=== PATIENT | male | born 1945 | race Caucasian/White ===

== ENCOUNTER → 2018-03-19 | Outpatient (REF) | payer MEDICARE ==
[~2018-03-19] MED LIST: ALL DAY10 MG PO; ALLOPURINOL300 MG PO; AMOXICILLIN500 MG OR; ASPIRIN325 MG PO
== END | disposition home or self-care (01) ==
LOC: DI 15:24
PROVIDERS: ATTEND Family Medicine
DX: M25.511 Pain in right shoulder (principal); M25.561 Pain in right knee; M19.011 Primary osteoarthritis, right shoulder; M17.11 Unilateral primary osteoarthritis, right knee

== ENCOUNTER → 2018-09-03 | Outpatient (REF) | payer MEDICARE ==
[2018-09-03 10:55] LABS: HEMOGLOBIN 15.6 g/dl (14.0-18.0); IMMATURE GRANULOCYTES 0.3 % (0.0-5.0); MEAN CELL VOLUME 92.1 fL CALC (80.0-100.0); MEAN CORPUSCULAR HGB 29.9 pG CALC (26.0-32.0); MEAN CORPUSCULAR HGB CONC 32.5 g/L CALC (32.0-36.0); NEUT# 3.85 thou/uL (1.82-7.42); RED BLOOD COUNT 5.21 mill/uL (4.70-6.10); RED CELL DISTRI WIDTH 13.6 % (11.5-15.5)
[2018-09-03 11:01] LABS: URINE BILIRUBIN - DIPSTICK NEGATIVE (NEGATIVE); URINE BLOOD DIPSTICK NEGATIVE (NEGATIVE); URINE COLOR YELLOW; URINE GLUCOSE - DIPSTICK NEGATIVE (NEGATIVE); URINE KETONE NEGATIVE (NEGATIVE); URINE LEUK ESTERASE NEGATIVE (NEGATIVE); URINE NITRITE - DIPSTICK NEGATIVE (Negative); URINE PH 5.5 (4.5-8.0); URINE PROTEIN - DIPSTICK NEGATIVE (NEG-TRACE); URINE SPECIFIC GRAVITY <=1.005; URINE UROBILINOGEN - DIPSTICK 0.2 E.U./dL (0.2)
[2018-09-03 11:36] LABS: ACT PARTIAL THROMBO TIME 28.9 SECONDS (20.0-32.5); PROTHROMBIN TIME 10.3 SECONDS (9.0-12.5)
[2018-09-03 11:40] LABS: ALBUMIN 4.2 g/dL (3.2-5.0); ALKALINE PHOSPHATASE 94 u/l (38-126); ANION GAP 16 (6-22 (CALC)); BILIRUBIN, TOTAL 0.4 mg/dL (0.0-1.4); BUN 22 mg/dL (8-23); BUN/CREATININE RATIO 19 (12-20 (CALC)); CARBON DIOXIDE 24 mmol/l (22-30); CHLORIDE 103 mmol/l (95-108); CREATININE 1.2 mg/dL (0.7-1.3); GFR 59 ML/MIN (>=60 (CALC)); GFR FOR AFR.AMER. > 60 ML/MIN (>=60 (CALC)); POTASSIUM 4.5 mmol/l (3.5-5.1); SGOT/AST 17 u/l (19-48); SODIUM 139 mmol/l (137-146); TOTAL PROTEIN 7.2 g/dL (6.3-8.2)
== END | disposition home or self-care (01) ==
LOC: LAB 10:27
PROVIDERS: ATTEND Family Medicine
DX: Z01.818 Encounter for other preprocedural examination (principal); Z13.89 Encounter for screening for other disorder; Z51.81 Encounter for therapeutic drug level monitoring; Z01.811 Encounter for preprocedural respiratory examination

== ENCOUNTER 2022-02-18 19:00 | Emergency (ER) | payer MEDICARE ==
[~2022-02-18] VITALS: Ht 177.8 cm; Wt 111.6 kg
[2022-02-18 19:45] LABS: HEMATOCRIT 44.5 % (39.0-50.0); IMMATURE GRANULOCYTES 0.3 % (0.0-5.0); MEAN CELL VOLUME 90.4 fL CALC (80.0-100.0); MEAN CORPUSCULAR HGB 30.5 pG CALC (26.0-32.0); MEAN CORPUSCULAR HGB CONC 33.7 g/dL CAL (32.0-36.0); NEUT# 4.07 thou/uL (1.82-7.42); RED BLOOD COUNT 4.92 mill/uL (4.70-6.10); RED CELL DISTRI WIDTH 13.9 % (11.5-15.5)
[2022-02-18 19:57] LABS: BILIRUBIN, TOTAL 0.4 mg/dL (0.0-1.4); CREATININE 1.5 mg/dL (0.7-1.3); TOTAL PROTEIN 7.5 g/dL (6.3-8.2)
[2022-02-18 23:05] VITALS: BP 135/87
== END 2022-02-18 23:05 | disposition home or self-care (01) ==
LOC: ED 19:00
PROVIDERS: Family Medicine
DX: K56.609 Unspecified intestinal obstruction, unspecified as to partial versus complete obstruction (principal)
CPT/HCPCS: Q9967

== ENCOUNTER 2024-06-08 12:04 | Inpatient (IN) | payer MEDICARE ==
[~2024-06-08] VITALS: Ht 177.8 cm; Wt 111.0 kg
[2024-06-08] VITALS (20 sets, daily range): BP systolic 100–147; BP diastolic 40–84
[~2024-06-08 12:04] MED LIST changes: +ACETAMINOPHEN 1,000 MG/100 ML VIAL IV ONE; +LACTATED RINGER'S 1,000 ML BAG IV ONE; +LIDOCAINE HCL 2% 2ML SDV IV ONE; +PLAVIX75 MG PO; +PROPOFOL 200 MG/20 ML VIAL IV ONE; +ROCURONIUM BROMIDE 10 MG/ML 5ML VIAL IV ONE; +SUCCINYLCHOLINE CHLORIDE 20 MG/ML 10ML VIAL IV ONE; +SUGAMMADEX SODIUM 200 MG/2 ML SDV IV ONE
--- NOTE | 2024-06-08 12:20 | NUR ---
PT WALKED BACK TO ER ROOM 2
[2024-06-08] MEDS ORDERED: MORPHINE SULFATE 4 MG/ML VIAL IV ONE (12:40)
[2024-06-08] MEDS ORDERED: SODIUM CHLORIDE 0.9% 1,000 ML IV ONE ×2 (12:40→13:50)
[2024-06-08] MEDS ORDERED: Pantoprazole Sodium 40 MG VIAL (Protonix) IV ONE (12:40)
[2024-06-08] MEDS ORDERED: ONDANSETRON HCl 4 MG/2 ML SDV IV ONE (12:40)
[2024-06-08 12:54] LABS: HEMATOCRIT 46.8 % (39.0-50.0); HEMOGLOBIN 15.1 g/dl (14.0-18.0); IMMATURE GRANULOCYTES 0.3 % (0.0-5.0); MEAN CELL VOLUME 95.1 fL CALC (80.0-100.0); MEAN CORPUSCULAR HGB 30.7 pG CALC (26.0-32.0); MEAN CORPUSCULAR HGB CONC 32.3 g/dL CAL (32.0-36.0); PLATELET COUNT 183 thou/uL (130-400); RED BLOOD COUNT 4.92 mill/uL (4.70-6.10); RED CELL DISTRI WIDTH 13.8 % (11.5-15.5)
--- NOTE | 2024-06-08 13:02 | NUR ---
PT MEDICATED PER EMAR, PT DENIES ANY NEEDS AT THIS TIME, CALL LIGHT WITHIN REACH
[2024-06-08 13:08] LABS: ALBUMIN 4.1 g/dL (3.2-5.0); BILIRUBIN, TOTAL 0.7 mg/dL (0.2-1.3); CREATININE 2.1 mg/dL (0.7-1.3); TOTAL PROTEIN 7.2 g/dL (6.3-8.2)
[2024-06-08 13:23] LABS: BAND 3 % (0-8); MANUAL DIFFERENTIAL YES
--- NOTE | 2024-06-08 15:00 | NUR ---
Reassessment of patient completed. No distress noted. PER PT HIS PAIN IS 2/10
[2024-06-08] MEDS ORDERED: HYDROmorphone HCL 2 MG/AMP IV PRN ×2 (15:25→18:30)
[2024-06-08] MEDS ORDERED: SODIUM CHLORIDE 0.9% 1,000 ML IV PRN (15:25)
[2024-06-08] MEDS ORDERED: MIDAZOLAM HCL 2 MG/2 ML VIAL IV ONE (15:30)
[2024-06-08] MEDS ORDERED: ATORVASTATIN CA20 MG PO (15:59)
[2024-06-08] MEDS ORDERED: LOPRESSOR25 M1 PO (15:59)
[2024-06-08] MEDS ORDERED: CORDARONE/200 MG/TAB PO (16:01)
--- NOTE | 2024-06-08 16:15 | NUR ---
ATTEMPTED AN NG TUBE PLACEMENT TWICE, NOT ABLE TO OBTAIN ACCESS, PT DECLINED A THIRD ATTEMPT, PT STATED "I WANT TO WAIT UNTIL THE OR TEAM CAN SEDATE ME AND PLACE IT, PROVIDER NOTED"
[2024-06-08] MEDS ORDERED: LIDOCAINE VISCOUS 2% 15 ML UDC PO PRN (16:25)
--- NOTE | 2024-06-08 16:39 | NUR ---
OR TEAM HERE TO TRANSPORT THE PT, TRANSFER OF CARE GIVEN, PT TO GO TO [facility] BED 277 AFTER THE PROCEDURE
[2024-06-08] MEDS ORDERED: LACTATED RINGER'S 1,000 ML IV ONE (16:58)
[2024-06-08] MEDS ORDERED: FAMOTIDINE 10MG/ML 2ML SDV IV ONE (17:16)
[2024-06-08] MEDS ORDERED: STERILE WATER FOR IRRIGATION 1,000 ML BTL IR ONE (18:08)
[2024-06-08] MEDS ORDERED: LIDOcaine HCl 1% (Local Anesth.) 20 ML VIAL ONE (18:08)
[2024-06-08] MEDS ORDERED: BENZOCAINE-MENTHOL (MOUTH-THRO 1 LOZ LOZ MT PRN (18:30)
[2024-06-08] MEDS ORDERED: PROMETHAZINE HCL 25 MG/ML AMP IV PRN (18:35)
[2024-06-08] MEDS ORDERED: Pantoprazole Sodium 40 MG VIAL (Protonix) IV SCH (18:40)
--- NOTE | 2024-06-08 20:00 | NUR ---
PATEINT ARRIVED FROM PACU VIA STRETCHER WITH PACU STAFF IN ATTENDANCE. PATIENT WAS ABLE TO TRANSFER OVER TO THE BED. PATIENT IS AWAKE AND ALERT WITH NO COMPLAINTS OF PAIN AT THIS TIME. NPO AT THIS TIME NG TUBE TO LEFT NARE AND HOOKED UP TO LIWS DRAINING SMALL AMT OF BROWN FLUID. IVF PATENT AND INFUSING VIA LEFT HAND. VS TAKEN AND RECORDED. CALL LIGHT IN REACH. WILL CONT TO MONITOR.
[2024-06-08] MEDS ORDERED: METOPROLOL TARTRATE 25 MG/TAB PO SCH (21:00)
[2024-06-08] MEDS ORDERED: SODIUM CHLORIDE 0.9% 1,000 ML IV SCH (23:25)
--- NOTE | 2024-06-08 23:48 | NUR ---
PATIENT ADMITTED FROM PACU VIA STRETCHER WITH PACU STAFF IN ATTENDANCE. PATIENT ABLE TO MOVE FROM STRETCHER TO BED. AWAKE ALERT AND ORIENTEDX3. PATIENT IS POST OP LAP WITH LYSIS OF ADHESIONS. ABD IS SOFTLY DISTENDED WITH LAP SITES INTACT WITH DERMADBOND. HYPOACTIVE BS AT THIS TIME. PATIENT WITH NG TUBE TO LEFT NARE AND DRAINING BROWNISH COLORED FLUID. IVF PATENT AND INFUSING VIA LEFT HAND SITE. SCD'S APPLIED ORDERED. IS AT BEDSIDE AND PATIENT INSTRUCTED ON USE Q1H WHILE AWAKE. PATIENT STATES MINIMAL PAIN AT THIS TIME. ORIENTED TO ROOM AND SURROUNDINGS. INSTRUCTED ON USE OF CALL LIGHT AND TV REMOTE. SAFETY PRECAUTIONS REINFORCED. REMAINS NPO AT TH IS TIME. CALL LIGHT IN REACH. WILL CONT TO MONITOR.
[2024-06-09 00:22] VITALS: BP 111/45
--- NOTE | 2024-06-09 00:40 | NUR ---
PATIENT SITTING UP IN BED AT THIS TIME WITH NG TUBE IN PLACE AND CONT TO DRAIN BROWN FLUID. PATIENT MEDICATED FOR POST-OP ABD PAIN AND THROAT PAIN WITH DILAUDID 1MGIVP VIA LEFT HAND SITE. NS PATENT AND INFUSING VIA LEFT HAND AT 125CC/HR. REMAINS NPO ORDERED. CALL LIGHT IN REACH. WILL CONT TO MONITOR.
--- NOTE | 2024-06-09 02:54 | NUR ---
PATIENT RESTING IN BED WITH HOB ELEVATED. NG TUBE CONT TO DRAIN BROWN FLUID AT THIS TIME. PATIENT WITH IVF NS PATENT AND INFUSING VIA LEFT HAND SITE AT 125CC/HR. MEDICATED FOR PAIN WITH DILAUDID 1MG IVP ORDERED FOR 610 POST-OP AND THROAT PAIN. SCD'S IN PLACE. CALL LIGHT IN REACH. WILL CONT TO MONITOR.
--- NOTE | 2024-06-09 03:16 | NUR ---
PATIENT ASSISTED OOB TO BEDSIDE TO VOID-50CC ONLY AT THIS TIME. ASSISTED BACK TO BED. WILL CONT TO MONITOR.
[2024-06-09 04:41] VITALS: BP 104/54
[2024-06-09 05:22] LABS: BASO% 0.2 % (0-3); EOS% 2.2 % (0-8); HEMATOCRIT 41.3 % (39.0-50.0); HEMOGLOBIN 13.2 g/dl (14.0-18.0); IMMATURE GRANULOCYTES 0.6 % (0.0-5.0); LYMPH% 19.4 % (15-41); MEAN CELL VOLUME 97.4 fL CALC (80.0-100.0); MEAN CORPUSCULAR HGB 31.1 pG CALC (26.0-32.0); MONO% 18.8 % (2-13); NEUT# 2.92 thou/uL (1.82-7.42); NEUT% 58.8 % (42-76); RED BLOOD COUNT 4.24 mill/uL (4.70-6.10); RED CELL DISTRI WIDTH 13.9 % (11.5-15.5)
[2024-06-09 05:32] LABS: BILIRUBIN, TOTAL 0.5 mg/dL (0.2-1.3); CREATININE 1.6 mg/dL (0.7-1.3); POTASSIUM 3.9 mmol/l (3.5-5.1)
[2024-06-09 05:36] LABS: TOTAL PROTEIN 5.7 g/dL (6.3-8.2)
--- NOTE | 2024-06-09 05:53 | NUR ---
PATIENT VOIDED 200CC OF NICK URINE AT THIS TIME. CONT TO BE NPO. NGTUBE TO LOW INT SUCTION. IVF NS PATENT AND INFUSING VIA LEFT HAND SITE AT 125CC/HR. CALL LIGHT IN REACH. WILL CONT TO MONITOR.
[2024-06-09 06:58] VITALS: BP 123/61
--- NOTE | 2024-06-09 08:00 | NUR ---
SHIFT CHANGE REPORT, PT AWAKE ALERT AND ORIENTED RESTING IN BED, NG TUBE IN PLACE TO L. NARE AT LIS WITH GREEN DRAINAGE, IVF INFUSING, ABD DISTENDED WITH SURGIAL PUNCTURES X 3 WELL APPROXIMATED WITH DERMABOND, CALL FERREIRA IN REACH AND BED LOCKED IN LOWEST POSITION.
[2024-06-09] MEDS ORDERED: AMIODARONE 200 MG/TAB PO SCH (09:00)
--- NOTE | 2024-06-09 09:15 | NUR ---
DR SADLER GAVE PHONE ORDERS TO REMOVE NG TUBE AND START PT ON CLEAR LIQUIDS
[2024-06-09 10:37] VITALS: BP 117/61
--- NOTE | 2024-06-09 12:30 | NUR ---
DR SADLER ROUNDED, DISCUSSED PLAN OF CARE, PT STATED UNDERSTANDING.
[2024-06-09 14:49] VITALS: BP 129/41
--- NOTE | 2024-06-09 17:00 | NUR ---
TOLERATED LIQUIDS WELL, THEN REGULAR MEAL WELL ALSO.
[2024-06-09 19:01] VITALS: BP 124/58
--- NOTE | 2024-06-09 20:00 | NUR ---
PATIENT IS SITTING UP IN BED WATCHING TV AT THIS TIME-AWAKE ALERT AND ORIENTEDX3. PATIENT WITH NO COMPLAINTS AT THIS TIME. PATIENT STATES NO NAUSEA AFTER HAVING REGULAR DIET FOR DINNER. ABD IS DISTENDED WITH HYPOACTIVE BS. STATES THAT HE DID HAVE SMALL BM EARLIER TODAY. NO DIFFICULTY WITH URINATION. LUNGS ARE CLEAR. NO PERIPHERAL EDEMA AND PULSES ARE PALPABLE. SALINE LOCK TO LEFT HAND INTACT AND HEALTHY AT THIS TIME WHEN FLUSHED. NO NEED FOR PAIN MEDS AT THIS TIME. CALL LIGHT IN REACH. WILL CONT TO MONITOR.
[2024-06-10 00:03] VITALS: BP 118/54
--- NOTE | 2024-06-10 00:21 | NUR ---
RESTING IN BED AT THIS TIME WITH HOB SLIGHTLY ELEVATED. EYES ARE CLOSED AND RESPS ARE EVEN AND UNLABORED. CALL LIGHT IN REACH. WILL CONT TO MONITOR.
[2024-06-10 01:26] VITALS: BP 137/54
--- NOTE | 2024-06-10 01:44 | NUR ---
PATIENT UP TO THE BR-HAD LARGE WATERY YELLOW STOOL IN BR-MIN ASSIST BACK TO THE BED. ABD IS DISTENDED AND PATIENT C/O NAUSEA AND FEELING BLOATED. MEDICATED WITH PHENERGAN 12.5 MG IVP VIA LEFT HAND SITE. CALL LIGHT IN REACH. WILL CONT TO MONITOR.
[2024-06-10 04:41] VITALS: BP 132/55
[2024-06-10 04:48] LABS: HEMATOCRIT 41.1 % (39.0-50.0); HEMOGLOBIN 13.2 g/dl (14.0-18.0); MEAN CELL VOLUME 98.6 fL CALC (80.0-100.0); MEAN CORPUSCULAR HGB 31.7 pG CALC (26.0-32.0); MEAN CORPUSCULAR HGB CONC 32.1 g/dL CAL (32.0-36.0); RED BLOOD COUNT 4.17 mill/uL (4.70-6.10); RED CELL DISTRI WIDTH 14.1 % (11.5-15.5)
--- NOTE | 2024-06-10 05:00 | NUR ---
PATIENT SITTING UP IN BED WITH EYES CLOSED AND RESPS ARE EVEN AND UNLABORED. CALL LIGHT IN REACH. WILL CONT TO MONITOR.
[2024-06-10 05:05] LABS: ALBUMIN 3.3 g/dL (3.2-5.0); BILIRUBIN, TOTAL 0.5 mg/dL (0.2-1.3); CREATININE 1.4 mg/dL (0.7-1.3); POTASSIUM 3.8 mmol/l (3.5-5.1); TOTAL PROTEIN 6.2 g/dL (6.3-8.2)
--- NOTE | 2024-06-10 07:42 | NUR ---
PATIENT SITTING UP IN RECLINER WITH EYES CLOSED. BREATHING UNLABORED ON ROOM AIR. IV IN LEFT HAND SL;SITE CLEAN AND INTACT. PT DENIES ANY PAIN OR N/D/V AT THIS TIME. PT PROVIDED WITH A SETUP FOR BREAKFAST. NO OTHER NEEDS AT THIS TIME. POC ONGOING.
[2024-06-10] MEDS ORDERED: BARIUM SULFATE PO ONE (09:05)
--- NOTE | 2024-06-10 09:28 | NUR ---
PATIENT LEFT UNIT TO XRAY.
--- NOTE | 2024-06-10 11:00 | NUR ---
PT BACK TO UNIT FROM XRAY.
--- NOTE | 2024-06-10 11:06 | NUR ---
PT UP AMBULATING IN HALLS.
--- NOTE | 2024-06-10 12:50 | NUR ---
PATIENT LYING IN BED WITH EYES CLOSED RESTING. BREATHING UNLABORED ON ROOM AIR. IV IN LEFT HAND SL;SITE CLEAN AND INTACT. NO SIGNS OF DISTRESS NOTED. BED IN LOWEST POSITION. PERSONAL ITEMS WELL CALL LIGHT WITHIN REACH. NO NEEDS AT THIS TIME. POC ONGOING.
[2024-06-10 15:48] VITALS: BP 131/67
--- NOTE | 2024-06-10 16:27 | NUR ---
PATIENT LYING IN BED WITH EYES CLOSED RESTING. BREATHING UNLABORED ON ROOM AIR. IV IN LEFT HAND SL;SITE CLEAN AND INTACT. PT DENIES ANY PAIN OR N/D/V AT THIS TIME. BED IN LOWEST POSITION. FAMILY AT BEDSIDE. CALL LIGHT WITHIN REACH. POC ONGOING.
[2024-06-10 18:25] VITALS: BP 136/64
--- NOTE | 2024-06-10 20:45 | NUR ---
PT RESTING IN BED NO DISTRESS NOTED ON ASSESSMENT. PT STATED FEELING BETTER. PT IS PASSING GAS AND STATED HAVING A BM TODAY BS ACTIVE. PT REPORTS NO NAUSEA OR VOMITING. THREE SURGICAL INCISIONS WITH DERMABOND WITH SLIGHT BRUISING INTACT. NO EDEMA NOTED ON EXAM. IV FLUSHED WORKING PROPERLY SL. PLAN OF CARE ONGOING.
--- NOTE | 2024-06-11 00:20 | NUR ---
PT SLEEPING NO DISTRESS NOTED BREATHING EVENLY. CALL LIGHT WITHIN REACH. PLAN OF CARE ONGOING.
[2024-06-11 04:07] VITALS: BP 99/57
--- NOTE | 2024-06-11 04:40 | NUR ---
PT RESTING IN BED NO DISTRESS NOTED ON EXAM. CALL LIGHT WITHIN REACH. PLAN OF CARE ONGOING.
[2024-06-11 05:19] LABS: BASO% 0.1 % (0-3); EOS% 2.9 % (0-8); HEMATOCRIT 40.1 % (39.0-50.0); HEMOGLOBIN 12.7 g/dl (14.0-18.0); LYMPH% 19.2 % (15-41); MEAN CELL VOLUME 98.3 fL CALC (80.0-100.0); MEAN CORPUSCULAR HGB 31.1 pG CALC (26.0-32.0); MEAN CORPUSCULAR HGB CONC 31.7 g/dL CAL (32.0-36.0); MONO% 17.8 % (2-13); NEUT# 3.9 thou/uL (1.82-7.42); RED BLOOD COUNT 4.08 mill/uL (4.70-6.10); RED CELL DISTRI WIDTH 14.3 % (11.5-15.5)
[2024-06-11 05:44] LABS: ALBUMIN 2.8 g/dL (3.2-5.0); BILIRUBIN, TOTAL 0.4 mg/dL (0.2-1.3); CREATININE 1.3 mg/dL (0.7-1.3); MAGNESIUM 1.9 mg/dL (1.6-2.3); POTASSIUM 3.7 mmol/l (3.5-5.1); TOTAL PROTEIN 5.5 g/dL (6.3-8.2)
[2024-06-11 06:38] VITALS: BP 140/65
[2024-06-11 09:47] VITALS: BP 139/64
--- NOTE | 2024-06-11 11:18 | NUR ---
Patient alert and oriented stable, no compains of pain, no needs at this time
== END 2024-06-11 12:41 | disposition home or self-care (01) | DRG 336 ==
LOC: ED 12:04 → ED-I 15:19 → ED 15:19 → MS2 15:32 → ED 16:40 → ED-I 16:40 → MS2 06-09 19:28
PROVIDERS: Family Medicine; Nurse Practitioner Family; Surgery; ADMIT Internal Medicine; ATTEND Internal Medicine
PROC: 0DN84ZZ Release Small Intestine, Percutaneous Endoscopic Approach (ICD-10-PCS; principal; 2024-06-08)
DX: K56.50 Intestinal adhesions [bands], unspecified as to partial versus complete obstruction (principal); I25.810 Atherosclerosis of coronary artery bypass graft(s) without angina pectoris; K63.89 Other specified diseases of intestine; Q43.0 Meckel's diverticulum (displaced) (hypertrophic); K42.9 Umbilical hernia without obstruction or gangrene; I12.9 Hypertensive chronic kidney disease with stage 1 through stage 4 chronic kidney disease, or unspecified chronic kidney disease; N18.9 Chronic kidney disease, unspecified; Z95.1 Presence of aortocoronary bypass graft
CPT/HCPCS: J0131; J0690; J1171; J2405; J2470; J2550